=== PATIENT | male | born 1995 | race American Indian/Alaskan Native ===

== ENCOUNTER 2020-11-16 19:59 | Emergency (ER) | payer SELFPAY ==
[2020-11-16 20:42] VITALS: BP 141/72
--- NOTE | 2020-11-16 20:45 | Event Note ---
ED Screening Note Date of service: 11/16/20 Time: 20:44 ED Screening Note: Patient complains of substernal chest pain x2 weeks Denies shortness of breath or cough This initial assessment/diagnostic orders/clinical plan/treatment(s) is/are subject to change based on patients health status, clinical progression and re- assessment by fellow clinical providers in the ED. Further treatment and workup at subsequent clinical providers discretion. Patient/guardian urged not to elope from the ED as their condition may be serious if not clinically assessed and managed. Initial orders include: Labs EKG Chest x-ray
[2020-11-16 21:29] LABS: Basophils % (Auto) 0.4 % (0.0-1.8); Eosinophils # (Auto) 0.1 K/mm3 (0.0-0.4); Eosinophils % (Auto) 0.8 % (0.0-4.3); Hematocrit 45.6 % (35.5-45.6); Hemoglobin 14.6 gm/dl (11.8-15.2); Lymphocytes # (Auto) 1.8 K/mm3 (1.2-5.4); Lymphocytes % (Auto) 21.3 % (13.4-35.0); Mean Corpuscular HGB Conc 32 % (32-34); Mean Corpuscular Volume 76 fl (84-94); Monocytes % (Auto) 12.1 % (0.0-7.3); Platelet Count 225 K/mm3 (140-440); Red Cell Distribution Width 14.2 % (13.2-15.2)
[2020-11-16 21:48] LABS: Alanine Aminotransferase 17 units/L (7-56); Albumin 4.9 g/dL (3.9-5); BUN/Creatinine Ratio 15; Blood Urea Nitrogen 12 mg/dL (9-20); Calcium 9.9 mg/dL (8.4-10.2); Hemolysis Index 17
--- NOTE | 2020-11-16 22:11 | XRay Report ---
CHEST 2 VIEWS INDICATION / CLINICAL INFORMATION: chest pain. COMPARISON: None available. FINDINGS: SUPPORT DEVICES: None. HEART / MEDIASTINUM: No significant abnormality. LUNGS / PLEURA: No significant pulmonary or pleural abnormality. No pneumothorax. ADDITIONAL FINDINGS: No significant additional findings. IMPRESSION: No acute cardiopulmonary abnormality. Signer Name: Farhan Dillon MD Signed: 11/16/2020 10:07 PM Workstation Name: [id number]
--- NOTE | 2020-11-16 22:31 | Emergency Department Report ---
ED Chest Pain HPI - General Chief Complaint: Chest Pain Stated Complaint: CHEST PAIN Time Seen by Provider: 11/16/20 20:44 Source: patient Mode of arrival: Ambulatory Limitations: No Limitations - History of Present Illness Initial Comments: Patient is a 25-year-old -[place] male with a history of tobacco abuse who presents to the ED with acute onset persistent pain constant anterior chest wall pain for the last 2 weeks. Patient states that the pain is worse with movement, palpation or heavy lifting. Patient denies fall, traumatic injury, dizziness, syncope, shortness of breath, cough, fever, chills, sore throat, abdominal pain, nausea and vomiting, neck pain, back pain, numbness and tingling or weakness of upper and lower extremities bilaterally. MD Complaint: chest pain, other (substernal chest wall pain) -: Sudden, week(s) (2) Onset: awoke with symptoms, other (movement) Pain Location: substernal Pain Radiation: none Severity: moderate Severity scale (0 -10): 4 Quality: tightness, aching, sharp Consistency: constant Improves With: nothing Worsens With: exertion, palpation, movement re: denies: nausea, vomting, diaphoresis Other Symptoms: denies: cough, fever, syncope, rash, acid taste in mouth, leg swelling, palpitations, burping, other Treatments Prior to Arrival: none Aspirin use within the Past 7 Days: (0) No - Related Data On Oral Contraceptives: No Previous Rx's Medication Instructions Recorded Last Taken Type Naproxen 500 mg PO Q12H PRN #30 tablet 11/16/20 Unknown Rx Allergies Allergy/AdvReac Type Severity Reaction Status Date / Time shellfish derived Allergy Hives Verified 11/16/20 20:39 Heart Score - HEART Score History: Slightly suspicious EKG: Normal Age: < 45 Risk factors: 1-2 risk factors Troponin: < normal limit HEART Score: 1 - Critical Actions Critical Actions: 0-3 pts:0.9-1.7%risk of adverse cardiac event.Candidate for discharge ED Review of Systems ROS: Stated complaint: CHEST PAIN Other details as noted in HPI Constitutional: denies: chills, fever Eyes: denies: eye pain, eye discharge, vision change ENT: denies: ear pain, throat pain Respiratory: denies: cough, shortness of breath, wheezing Cardiovascular: chest pain (Anterior chest wall pain). denies: palpitations Endocrine: no symptoms reported Gastrointestinal: denies: abdominal pain, nausea, diarrhea Genitourinary: denies: urgency, dysuria Musculoskeletal: denies: back pain, joint swelling, arthralgia Skin: denies: rash, lesions Neurological: denies: headache, weakness, paresthesias Psychiatric: denies: anxiety, depression Hematological/Lymphatic: denies: easy bleeding, easy bruising ED Past Medical Hx - Past Medical History Additional medical history: eczema - Social History Smoking Status: Never Smoker Substance Use Type: Marijuana - Medications Home Medications: Home Medications Medication Instructions Recorded Confirmed Last Taken Type Naproxen 500 mg PO Q12H PRN #30 tablet 11/16/20 Unknown Rx ED Physical Exam - General Limitations: No Limitations General appearance: alert, in no apparent distress - Head Head exam: Present: atraumatic, normocephalic, normal inspection - Eye Eye exam: Present: normal appearance, PERRL, EOMI Pupils: Present: normal accommodation - ENT ENT exam: Present: normal exam, normal orophraynx, mucous membranes moist, TM's normal bilaterally, normal external ear exam - Neck Neck exam: Present: normal inspection, full ROM. Absent: tenderness - Respiratory Respiratory exam: Present: normal lung sounds bilaterally, chest wall tenderness (Palpable reproducible anterior chest wall tenderness). Absent: respiratory distress, wheezes, rales, rhonchi, accessory muscle use, decreased breath sounds, prolonged expiratory - Cardiovascular Cardiovascular Exam: Present: regular rate, normal rhythm, normal heart sounds. Absent: systolic murmur, diastolic murmur, rubs, gallop - GI/Abdominal GI/Abdominal exam: Present: soft, normal bowel sounds. Absent: tenderness, guarding, hyperactive bowel sounds, hypoactive bowel sounds, organomegaly - Extremities Exam Extremities exam: Present: normal inspection, full ROM, normal capillary refill - Back Exam Back exam: Present: normal inspection, full ROM. Absent: tenderness, CVA tenderness (R), CVA tenderness (L), muscle spasm, paraspinal tenderness, vertebral tenderness - Neurological Exam Neurological exam: Present: alert, oriented X3, CN II-XII intact, normal gait, reflexes normal - Psychiatric Psychiatric exam: Present: normal affect, normal mood - Skin Skin exam: Present: warm, dry, intact, normal color. Absent: rash ED Course Vital Signs 11/16/20 20:39 Temperature 98.6 F Pulse Rate 80 Respiratory 16 Rate Blood Pressure 141/72 O2 Sat by Pulse 100 Oximetry JUSTYN score - Justyn Score Age > 65: (0) No Aspirin use within the Past 7 Days: (0) No 3 or more CAD Risk Factors: (0) No 2 or more Angina events in past 24 hrs: (0) No Known CAD with more than 50% Stenosis: (0) No Elevated Cardiac Markers: (0) No ST Deviation Greater than 0.5mm: (0) No JUSTYN Score: 0 ED Medical Decision Making - Lab Data Result diagrams: 11/16/20 20:49 11/16/20 20:49 - EKG Data EKG shows normal: sinus rhythm Rate: bradycardia - EKG Data Interpretation: normal EKG 11/16/20 22:35 EKG shows sinus medicated with ventricular rate of [address] elevation or any abnormal T wave findings. - Radiology Data Radiology results: report reviewed, image reviewed [address] [address] XRay Report Signed Patient: VERONIKA HILLS JR MR#: [id number] : 1995 Acct:[id number] Age/Sex: 25 / M ADM Date: 11/16/20 Loc: ED Attending Dr: Ordering Physician: KIMBERLY GORDILLO Date of Service: 11/16/20 Procedure(s): XR chest routine 2V Accession Number(s): [id number] cc: KMIBERLY GORDILLO Fluoro Time In Minutes: CHEST 2 VIEWS INDICATION / CLINICAL INFORMATION: chest pain. COMPARISON: None available. FINDINGS: SUPPORT DEVICES: None. HEART / MEDIASTINUM: No significant abnormality. LUNGS / PLEURA: No significant pulmonary or pleural abnormality. No pneumothorax. ADDITIONAL FINDINGS: No significant additional findings. IMPRESSION: No acute cardiopulmonary abnormality. Signer Name: Rober Dominguez MD Signed: 11/16/2020 10:07 PM Workstation Name: [id number] Transcribed By: SS Dictated By: ROBER DOMINGUEZ Electronically Authenticated By: ROBER DOMINGUEZ Signed Date/Time: 11/16/202206 DD/ 06 TD/TT: - Medical Decision Making This is a 25-year-old -[place] male with a history of tobacco abuse who presents to the ED with acute onset persistent pain constant anterior chest wall pain for the last 2 weeks. Patient states that the pain is worse with movement, palpation or heavy lifting. In the ED, patient is alert and oriented x3 and is not in distress. EKG shows sinus bradycardia with a ventricular rate of [address] or T wave abnormalities. Chest x-ray shows no acute cardiopulmonary abnormalities or pneumonitis. Lab test results were reviewed and are all nonactionable. Based on the history and physical exam findings, lab test results and imaging report as well as the EKG findings, patient symptoms are unlikely to be due to acute coronary syndrome although the patient's heart score is 1 and he is PERC negative per Wells criteria. Patient's symptoms are reproducible on physical exam, consistent with acute costochondritis or muscle strain of anterior chest wall. Patient was therefore treated for pain with an ti-inflammatory medications and discharged home on anti-inflammatory medications for pain. Patient was advised to follow-up with his primary care physician in 3 to 5 days for reevaluation or return to the ED immediately if symptoms get worse. - Differential Diagnosis ACS, PE, muscle strain, costochondritis, pneumonia Critical care attestation.: If time is entered above; I have spent that time in minutes in the direct care of this critically ill patient, excluding procedure time. ED Disposition Clinical Impression: Acute costochondritis, Muscle strain of anterior chest wall Disposition: DC-01 TO HOME OR SELFCARE Is pt being admited?: No Does the pt Need Aspirin: No Condition: Stable Instructions: Costochondritis, [id number], Muscle Strain, [id number] Additional Instructions: All lab test results were reviewed and are all nonactionable. Chest x-ray shows no acute cardiopulmonary abnormalities or pneumonitis, pneumothorax or rib fractures. Therefore your symptoms are likely due to muscle strain or muscle spasm of your chest wall based on the physical exam findings and history. Therefore take medications as needed for pain, drink plenty of fluids and follow-up with your primary care physician in 5 to 7 days for reevaluation or r eturn to the ED immediately if symptoms get worse. Prescriptions: Naproxen 500 mg PO Q12H PRN #30 tablet PRN Reason: Pain , Severe (7-10) Referrals: [facility] [Provider Group] - 3-5 Days Time of Disposition: 22:31 Print Language: CHINESE
[2020-11-16] MEDS ORDERED: IBUPROFEN 600 MG TAB PO ONE (22:33)
--- NOTE | 2020-11-17 11:25 | Electrocardiograph Report ---
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
== END 2020-11-16 23:00 | disposition home or self-care (01) ==
LOC: ED 19:59
DX: S29.011A Strain of muscle and tendon of front wall of thorax, initial encounter (principal); M94.0 Chondrocostal junction syndrome [Tietze]; F12.90 Cannabis use, unspecified, uncomplicated; Z79.899 Other long term (current) drug therapy; Z91.013 Allergy to seafood; X58.XXXA Exposure to other specified factors, initial encounter; Y93.89 Activity, other specified; Y92.89 Other specified places as the place of occurrence of the external cause; Y99.8 Other external cause status
CPT/HCPCS: 36415; 71046; 80053; 84484; 85025; 93005